=== PATIENT | male | born 1960 | race Hispanic/Latino ===

== ENCOUNTER 2017-06-03 00:14 | Emergency (ER) | payer BC ==
[~2017-06-03] VITALS: Ht 160 cm; Wt 77.1 kg
[~2017-06-03 00:14] MED LIST: ATORVASTATIN CA40 MG PO; AVELOX400 MG PO; FLAGYL500 MG PO; Folvite PO; LEVAQUIN750 MG PO; PERCOCET 5/31 TABLET PO; SIMVASTATIN5 MG PO; THERAGRAN1 TABLET PO; THIAMINE,VITAM100 MG PO; Tums PO; ZOFRAN4 MG PO
[2017-06-03 00:51] LABS: HEMATOCRIT 46.1 % (38.0-50.0); MCHC 34.1 G/DL (30.0-36.0); MCV 90.9 FL (86-99); MEAN PLAT.VOLUME 10.3 uM^3 (9.0-12.4); PLATELET COUNT 243 K/uL (156-360); RBC DIS.WIDTH-CV 12.1 % (11.8-14.6); RBC DIS.WIDTH-SD 40.2 % (39-53); RED BLOOD COUNT 5.07 M/uL (4.00-5.50); WHITE BLOOD COUNT 9.6 K/uL (4.1-10.2)
[2017-06-03 01:03] LABS: CHLORIDE 106 mEq/L (99-109); POTASSIUM 3.9 mEq/L (3.7-5.4); SODIUM 141 mEq/L (136-147)
[2017-06-03 01:04] LABS: GLUCOSE 103 mg/dL (70-99)
[2017-06-03 01:06] LABS: ANION GAP 13 MEQ/L (2-14)
[2017-06-03 01:08] LABS: GFR ESTIMATE (CALCULATED) > 59 mL/min/ (58.99-99999)
[2017-06-03 01:09] LABS: UREA NITROGEN (BUN) 13 mg/dL (9-23)
[2017-06-03 01:11] LABS: TROP-I INTERPRETATION NEGATIVE; TROPONIN-I < 0.01 ng/mL (0.0-0.30)
[2017-06-03 02:16] LABS: TOTAL BILIRUBIN 0.5 mg/dL (0.0-1.0)
[2017-06-03 02:17] LABS: ALKALINE PHOSPHATASE 135 IU/L (3-129)
[2017-06-03 02:20] LABS: LIPASE 57 U/L (1.0-51.0)
[2017-06-03 03:02] LABS: TROP-I INTERPRETATION NEGATIVE; TROPONIN-I < 0.01 ng/mL (0.0-0.30)
[2017-06-03 04:53] VITALS: BP 122/87
== END 2017-06-03 04:55 | disposition home or self-care (01) ==
LOC: EME 00:14
PROVIDERS: Emergency Medicine
DX: R07.9 Chest pain, unspecified (principal); I10 Essential (primary) hypertension; E78.5 Hyperlipidemia, unspecified; K21.9 Gastro-esophageal reflux disease without esophagitis
CPT/HCPCS: 71020; 76705; 80048; 80076; 83690; 84484; 85027; 93005

== ENCOUNTER 2017-12-02 19:39 | Emergency (ER) | payer BC ==
[~2017-12-02] VITALS: Ht 162.6 cm; Wt 75.2 kg
[2017-12-02 20:15] LABS: HEMATOCRIT 46.7 % (38.0-50.0); HEMOGLOBIN 16.9 G/DL (12.5-16.6); MCH 30.5 PG (29.0-34.0); MCHC 36.2 G/DL (30.0-36.0); MCV 84.3 FL (86-99); PLATELET COUNT 287 K/uL (156-360); RBC DIS.WIDTH-SD 36.7 % (39-53); RED BLOOD COUNT 5.54 M/uL (4.00-5.50)
[2017-12-02 20:19] LABS: ALBUMIN 4.3 g/dL (3.2-4.8); CHLORIDE 101 mEq/L (99-109); POTASSIUM 4.2 mEq/L (3.7-5.4); SODIUM 141 mEq/L (136-147)
[2017-12-02 20:22] LABS: GLUCOSE 120 mg/dL (70-99); TOTAL PROTEIN 7.6 g/dL (6.4-8.3)
[2017-12-02 20:23] LABS: TOTAL BILIRUBIN 1.5 mg/dL (0.0-1.0)
[2017-12-02 20:25] LABS: ALKALINE PHOSPHATASE 124 IU/L (3-129); CREATININE 0.8 mg/dL (0.6-1.3); GFR ESTIMATE (CALCULATED) > 59 mL/min/ (58.99-99999)
[2017-12-02 20:26] LABS: UREA NITROGEN (BUN) 20 mg/dL (9-23)
[2017-12-02 20:27] LABS: AST (GOT) 147 IU/L (2-34)
[2017-12-02 20:28] LABS: ALT (GPT) 91 IU/L (3-49)
[2017-12-02 21:03] LABS: LIPASE 101 U/L (1.0-51.0)
[2017-12-02 21:11] LABS: DIRECT BILIRUBIN 0.3 mg/dL (0.0-0.3)
[2017-12-02 22:58] LABS: APPEARANCE CLEAR ((CLEAR)); BILIRUBIN NEGATIVE; BLOOD SMALL; COLOR YELLOW ((YELLOW)); GLUCOSE (STRIP) NEGATIVE; KETONES 5; LEUKOCYTES NEGATIVE; NITRITE NEGATIVE; PROTEIN (STRIP) NEGATIVE; SPECIFIC GRAVITY 1.015 (1.000-1.030); UROBILINOGEN 0.2 MG/DL (0.2-1.0)
[2017-12-02 23:03] LABS: BACTERIA RARE /HPF; EPITHELIAL CELLS NONE SEEN /HPF; MUCUS TRACE /LPF; RED BLOOD CELLS 0-5 /HPF (0-5); WHITE BLOOD CELLS 0-5 /HPF (0-5)
[2017-12-03] MEDS ORDERED: VALIUM10 MG PO (00:01)
[2017-12-03] MEDS ORDERED: ZOFRAN ODT8 MG PO (00:01)
[2017-12-03] MEDS ORDERED: THIAMINE HCL100 MG PO (00:02)
[2017-12-03] MEDS ORDERED: NEXIUM40 MG PO (02:35)
[2017-12-03 02:57] VITALS: BP 132/65
== END 2017-12-03 03:01 | disposition home or self-care (01) ==
LOC: EME 19:39
PROVIDERS: Physician Assistant
DX: F10.129 Alcohol abuse with intoxication, unspecified (principal); R10.84 Generalized abdominal pain; I10 Essential (primary) hypertension; E78.5 Hyperlipidemia, unspecified; Y90.9 Presence of alcohol in blood, level not specified
CPT/HCPCS: 74177; 80053; 81003; 82248; 83605; 83690; 85027; 99281; 99285; J2060; J2405; J3411; J3475; J7030